=== PATIENT | male | born 1960 | race Caucasian/White ===

== ENCOUNTER 2022-03-10 18:25 | Observation (INO) ==
[2022-03-10] MEDS ORDERED: Melatonin 3 MG TABLET PO PRN (22:51)
[2022-03-10] MEDS ORDERED: Ondansetron 4 MG/2 ML VIAL IVP PRN (22:51)
[2022-03-10] MEDS ORDERED: Acetaminophen 325 MG TABLET PO PRN (22:51)
[2022-03-10] MEDS ORDERED: Naloxone 0.4 MG/ML INJ IVP PRN (22:51)
[2022-03-10] MEDS ORDERED: *HR* Heparin 5,000 UNIT/ML VIAL IVP PRN ×2 (23:00)
[2022-03-10] MEDS ORDERED: *HR* Heparin 5,000 UNIT/ML VIAL IVP ONE (23:00)
[2022-03-10] MEDS ORDERED: Vancomycin 1,750 MG in 0.9 % Sodium Chloride 250 ML IVPB SCH (23:00)
[2022-03-11 00:52] LABS: Basophils # 0.1 K/mcL (0.0-0.2); Basophils % 0.6 %; Eosinophils # 0.2 K/mcL (0.0-0.6); Hematocrit 37.2 % (37.5-50.1); Hematocrit 37.9 % (37.5-50.1); Hemoglobin 12.8 g/dL (12.9-16.9); Hemoglobin 12.9 g/dL (12.9-16.9); Immature Granulocytes % 0.2 % (0-4); Mean Corpuscular HGB Conc 34.4 g/dL (31.6-35.5); Mean Corpuscular Hemoglobin 32.4 pg (28.0-33.3); Mean Corpuscular Hemoglobin 32.7 pg (28.0-33.3); Mean Corpuscular Volume 95.1 fL (83.0-100.0); Mean Corpuscular Volume 95.2 fL (83.0-100.0); Mean Platelet Volume 10.1 fL (9.4-12.4); Mean Platelet Volume 10.2 fL (9.4-12.4); Monocytes # 0.8 K/mcL (0.0-1.3); Monocytes % 9.1 %; Neutrophils # 3.8 K/mcL (1.6-8.9); Platelet Count 231 K/mcL (140-400); Platelet Count 233 K/mcL (140-400); Red Blood Count 3.91 M/mcL (4.19-5.50); Red Blood Count 3.98 M/mcL (4.19-5.50); Red Cell Distribution Width 12.3 % (11.5-14.5); Segmented Neutrophils % 43.1 %; White Blood Count 8.6 K/mcL (4.3-11.1); White Blood Count 8.9 K/mcL (4.3-11.1)
[2022-03-11 01:01] LABS: Alanine Aminotransferase 12 Units/L (7-52); Albumin 3.7 g/dL (3.5-5.7); Albumin/Globulin Ratio 1.5 (1.1-2.2); Alkaline Phosphatase 66 Units/L (34-104); Aspartate Amino Transferase 21 Units/L (13-39); BUN/Creatinine Ratio 15 (6-26); Bilirubin,Total 0.3 mg/dL (0.3-1.0); Blood Urea Nitrogen 14 mg/dL (8-23); Calcium 9.1 mg/dL (8.6-10.3); Carbon Dioxide 25 mEq/L (23-29); Chloride 106 mEq/L (98-107); Globulin 2.4 g/dL (2.4-3.5); Glucose 108 mg/dL (70-105); Magnesium 2.1 mg/dL (1.6-2.6); Osmolality,Calculated 291 (280-300); Phosphorous 3.4 mg/dL (2.7-4.5); Potassium 3.4 mEq/L (3.5-5.1); Sodium 140 mEq/L (136-145); Total Protein 6.1 g/dL (6.4-8.9); Troponin I < 0.03 ng/mL (< 0.04); eGFR For African Americans > 60 (> 60); eGFR For Non-African Americans > 60 (> 60)
[2022-03-11 01:04] LABS: INR 1.1; Prothrombin Time 11.8 Seconds (9.4-12.1)
[2022-03-11 01:05] LABS: INR 1.1; Prothrombin Time 11.7 Seconds (9.4-12.1)
[2022-03-11 01:23] LABS: Heparin anti-factor XA UFH 1.15 IU/mL (0.30-0.70)
[2022-03-11 02:05] LABS: Platelet Estimate Normal (Normal); Reactive Lymphocytes Present (Not Present)
[2022-03-11] MEDS ORDERED: Potassium Chloride Elixir 20 MEQ/15 ML UDC PO ONE ×2 (02:43→09:00)
[2022-03-11] MEDS ORDERED: Nitroglycerin 0.4 MG TAB.SUBL SL PRN (02:45)
[2022-03-11] MEDS: Vancomycin 1,500 MG/265 ML IV.SOLN IVPB SCH ×2 (06:43→17:11)
[2022-03-11] MEDS ORDERED: (Omega-3 Fatty Acids [Fish Oil] 300 MG Capsule) PO SCH (09:00)
[2022-03-11] MEDS ORDERED: Metoprolol XL (24 HR) Succ 25 MG TAB.ER.24H PO SCH (11:45)
[2022-03-11] MEDS: Heparin 25,000UNIT/250ML 1/2NS 25,000 UNIT/250 ML IV.SOLN IVC SCH ×2 (18:57)
[2022-03-12] MEDS: Vancomycin 1,500 MG/265 ML IV.SOLN IVPB SCH (05:09)
[2022-03-12] MEDS: Heparin 25,000UNIT/250ML 1/2NS 25,000 UNIT/250 ML IV.SOLN IVC SCH (06:36)
[2022-03-12 08:05] VITALS: BP 132/68; PULSE 51; TEMP 97.5; O2SAT 94
[2022-03-12 08:21] LABS: Basophils # 0.1 K/mcL (0.0-0.2); Basophils % 0.7 %; Eosinophils # 0.2 K/mcL (0.0-0.6); Eosinophils % 2.5 %; Hematocrit 38.2 % (37.5-50.1); Hemoglobin 12.7 g/dL (12.9-16.9); Immature Granulocytes % 0.2 % (0-4); Lymphocytes # 4.4 K/mcL (0.6-4.6); Lymphocytes % 51.3 %; Mean Corpuscular HGB Conc 33.2 g/dL (31.6-35.5); Mean Corpuscular Hemoglobin 32.4 pg (28.0-33.3); Mean Corpuscular Volume 97.4 fL (83.0-100.0); Mean Platelet Volume 10.6 fL (9.4-12.4); Monocytes # 0.7 K/mcL (0.0-1.3); Monocytes % 7.8 %; Neutrophils # 3.2 K/mcL (1.6-8.9); Platelet Count 223 K/mcL (140-400); Red Blood Count 3.92 M/mcL (4.19-5.50); Red Cell Distribution Width 12.5 % (11.5-14.5); Segmented Neutrophils % 37.5 %; White Blood Count 8.6 K/mcL (4.3-11.1)
[2022-03-12 08:30] LABS: BUN/Creatinine Ratio 17 (6-26); Blood Urea Nitrogen 13 mg/dL (8-23); Calcium 9.3 mg/dL (8.6-10.3); Carbon Dioxide 24 mEq/L (23-29); Chloride 106 mEq/L (98-107); Glucose 123 mg/dL (70-105); Osmolality,Calculated 291 (280-300); Potassium 3.7 mEq/L (3.5-5.1); Sodium 140 mEq/L (136-145); eGFR For African Americans > 60 (> 60); eGFR For Non-African Americans > 60 (> 60)
[2022-03-12] MEDS ORDERED: Ezetimibe [Zetia] 10 MG Tablet PO SCH (09:00)
[2022-03-12] MEDS ORDERED: Multivit/Ca/Min/Fe/FA 1 TAB TABLET PO SCH (09:00)
[2022-03-12] MEDS ORDERED: Apixaban 5 MG TABLET PO ONE (12:00)
== END 2022-03-12 13:00 | disposition home or self-care (01) ==
LOC: 3ANU → SUATTDRO 21:53
PROVIDERS: ADMIT Internal Medicine; ATTEND Hospitalist